=== PATIENT | male | born 1940 | race Caucasian/White ===

== ENCOUNTER 2018-12-26 06:17 | Day surgery (SDC) | payer MEDICARE, BC ==
[~2018-12-26] VITALS: Ht 180.3 cm; Wt 86.5 kg
[2018-12-26] VITALS (16 sets, daily range): BP systolic 90–106; BP diastolic 38–68
[2018-12-26] MEDS ORDERED: sodium chloride 0.45% 1,000 ML IV SCH (06:55)
[2018-12-26] MEDS ORDERED: nitroGLYCERIN 0.4mg SUBLingual tab SL PRN (06:55)
[2018-12-26] MEDS ORDERED: diphenhydrAMINE 25mg capsule PO PRN (06:55)
[2018-12-26] MEDS ORDERED: LORazepam 0.5 MG tablet PO PRN (06:55)
[2018-12-26] MEDS ORDERED: VITAMIN D (07:02)
[2018-12-26] MEDS ORDERED: DIGO250T PO (07:02)
[2018-12-26] MEDS ORDERED: WARF2TAB PO (07:02)
[2018-12-26] MEDS ORDERED: POTA10TA19 PO (07:02)
[2018-12-26] MEDS ORDERED: FURO-149 PO (07:02)
[2018-12-26] MEDS ORDERED: RAMI5CAP65 PO (07:02)
[2018-12-26] MEDS ORDERED: DESL5TAB PO (07:02)
[2018-12-26] MEDS ORDERED: OSC500T PO (07:02)
[2018-12-26] MEDS ORDERED: ROSU20TA2 PO (07:02)
[2018-12-26] MEDS ORDERED: CARV3.12 PO (07:02)
[2018-12-26] MEDS ORDERED: FISH12002 PO (07:02)
[2018-12-26] MEDS ORDERED: MULT-955 PO (07:02)
[2018-12-26 07:52] LABS: PARTIAL THROMBOPLASTIN TIME 34 SECONDS (22-32); PROTHROMBIN TIME 19.8 SECONDS (9.0-12.0)
[2018-12-26] MEDS ORDERED: LIDOcaine 1% (10mg/ml)w/preservative injection 20ml MDV ONE (08:01)
[2018-12-26] MEDS ORDERED: iohexol 350 MG/ML 50ML vial IV ONE (08:01)
[2018-12-26] MEDS ORDERED: iohexol 350MG/ML 100ml bottle IV ONE (08:01)
[2018-12-26] MEDS ORDERED: fentaNYL/PF 50MCG/1 ML 2ML syringe ONE (08:02)
[2018-12-26] MEDS ORDERED: midazolam 2 mg/2 ml injection ONE (08:02)
== END 2018-12-26 16:10 | disposition home or self-care (01) ==
LOC: SSTAY O 06:17
PROVIDERS: ATTEND Internal Medicine Cardiovascular Disease
DX: I25.10 Atherosclerotic heart disease of native coronary artery without angina pectoris (principal); I48.91 Unspecified atrial fibrillation; I50.9 Heart failure, unspecified; E78.5 Hyperlipidemia, unspecified; Z98.890 Other specified postprocedural states; Z87.891 Personal history of nicotine dependence
CPT/HCPCS: 36415; 80162; 85610; 85730; 93005; 93458; 99152; A6257; J1644; J2001; J2250; J3010; Q0163; Q9967; A4620; C1760; C1769

== ENCOUNTER 2019-01-18 07:30 | Inpatient (IN) | payer MEDICARE, BC ==
[2019-01-17 13:05] LABS: ABG HCO3 19.1 mmol/L (22.0-26.0); ABG OXYGEN SATURATION 97.7 % (95-98); ABG PCO2 (T) 24.4 mmHg (35.0-48.0); ABG PH (T) 7.511 (7.350-7.450); ABG PO2 (T) 98.5 mmHg (83-108); ALLEN'S TEST Positive; FCOHb 0.4 % (0.5-1.5); FMetHb 0.1 % (0.3-1.12); FO2Hb 97.2 % (94-100); TOTAL HEMOGLOBIN 14.5 G/dl (14.0-18.0)
[2019-01-17 14:34] LABS: CLARITY,URINE CLOUDY (Clear); COLOR,URINE YELLOW (Yellow); GLUCOSE, URINE NEGATIVE (Neg); KETONES,URINE NEGATIVE (Neg); LEUKOCYTE ESTERASE ,URINE LARGE (Neg); NITRITES, URINE NEGATIVE (Neg); OCCULT BLOOD,URINE SMALL (Neg); PH,URINE 5.5 (4.8-8.0); PROTEIN,URINE NEGATIVE (Neg); UROBILINOGEN,URINE 0.2 E.U/dL (0.2-1.0)
[2019-01-17 14:38] LABS: UA COLLECTION TYPE VOIDED
[2019-01-17 14:39] LABS: BASOPHILS # (AUTO) 0.1 X10'3 (0-0.2); EOSINOPHILS # (AUTO) 0.2 X10'3 (0-0.9); EOSINOPHILS % (AUTO) 3.3 % (0-6); LYMPHOCYTES # (AUTO) 1.2 X10'3 (1.1-4.8); LYMPHOCYTES % (AUTO) 21.9 % (21-51); MEAN CORPUSCULAR HEMOGLOBIN 32.1 PG (27.0-31.0); MEAN CORPUSCULAR HGB CONC 33.8 g/dL (33.0-36.5); MEAN CORPUSCULAR VOLUME 95.1 FL (78-98); MEAN PLATELET VOLUME 8.7 FL (7.4-10.4); MONOCYTES # (AUTO) 0.7 X10'3 (0-0.9); MONOCYTES % (AUTO) 12.8 % (2-12); NEUTROPHILS # (AUTO) 3.3 X10'3 (1.8-7.7); PRE OP HEMATOCRIT 40.7 % (42.0-52.0); PRE OP HEMOGLOBIN 13.8 g/dL (14.0-17.9); PRE OP PLATELET COUNT 239 X10'3 (140-440); RED BLOOD COUNT 4.28 X10'6 (4.70-6.10); RED CELL DISTRIBUTION WIDTH 13.8 % (11.5-14.5)
[2019-01-17 14:41] LABS: WBC,URINE TNTC /HPF (0-4)
[2019-01-17 14:42] LABS: BACTERIA,URINE 1+ /HPF (Neg); MUCUS STRANDS MODERATE /LPF (Neg); SQUAMOUS EPITHELIAL CELL,UR FEW /LPF (FEW)
[2019-01-17 14:43] LABS: HEMOGLOBIN A1C 6.3 % (4.5-6.2)
[2019-01-17 14:51] LABS: ALBUMIN 3.7 G/DL (3.4-5.0); ALBUMIN/GLOBULIN RATIO 0.9 (1.1-1.5); ALKALINE PHOSPHATASE 59 IU/L (46-116); BLOOD UREA NITROGEN 22 MG/DL (7-18); BUN/CREATININE RATIO 18.3 (5.4-32.0); CALCIUM 9.2 MG/DL (8.5-10.1); CHLORIDE 104 MMOL/L (99-107); PRE OP ANION GAP 4 (8-16); PRE OP AST 20 U/L (10-37); PRE OP BILIRUB, TOTAL 0.8 MG/DL (0.0-1.0); PRE OP GLUCOSE 108 MG/DL (70-104); PRE OP POTASSIUM 4.2 MMOL/L (3.4-5.1); PRE OP SODIUM 139 MMOL/L (135-145); TOTAL CARBON DIOXIDE 31.1 MMOL/L (24-32); TOTAL PROTEIN 7.6 G/DL (6.4-8.2); eGFR 59 ML/MIN
[2019-01-17 14:55] LABS: PRE OP INR 1.1 INR; PRE OP PROTIME 11.1 SECONDS (9.0-12.0)
[2019-01-17 15:02] LABS: PRE OP ALT 23 U/L (30-65)
[~2019-01-18] VITALS: Ht 180.3 cm; Wt 86.0 kg
[2019-01-18] VITALS (9 sets, daily range): BP systolic 93–135; BP diastolic 57–95
[~2019-01-18 07:30] MED LIST: CARV3.12 PO; DIGO250T77 PO; DOCUMENT DATE & TIME OF BETA-BLOCKER PO ONE; FURO-149 PO; LORazepam 2 mg/ml vial IV ONE; POTA10TA19 PO; RAMI5CAP65 PO; ROSU20TA2 PO; WARF2.5T PO; cefazolin/dext.iso 2gm/100 ML IV ONE; dextrose 50%-water 50ml dispensing syringe IV PRN; famotidine 20mg tablet PO ONE; gabapentin 300mg capsule PO ONE; iohexol 350MG/ML 100ml bottle IV ONE; metoprolol tartrate 12.5mg (1/2 tablet) PO ONE; mupirocin 2% nasal ointment 1gm UD NS ONE; ringers solution, lacted 1,000 ML IV SCH; vancomycin inj 1,500 MG in normal saline 300ml IV soln IV ONE
[2019-01-18] MEDS ORDERED: ROPIVAcaine 0.5% (5mg/ml) 30ml vial ONE (08:22)
[2019-01-18] MEDS ORDERED: acetaminophen 1,000mg/100ml IV 100 ML IV ONE (08:22)
[2019-01-18] MEDS ORDERED: SUFENTANIL CITRATE 50 MCG/ML 2ml ampule IV ONE (12:38)
[2019-01-18] MEDS ORDERED: midazolam 2 mg/2 ml injection ONE ×2 (12:38→12:59)
[2019-01-18] MEDS ORDERED: propofol inj 20 ML IV ONE (12:38)
[2019-01-18] MEDS ORDERED: rocuronium 10mg/ml inj IV ONE ×3 (12:41)
[2019-01-18] MEDS ORDERED: aminocaproic acid 250 MG/1 ML inj. ONE ×2 (12:51→13:00)
[2019-01-18] MEDS ORDERED: papaverine 30 mg/ml 2ml inj. ONE (12:51)
[2019-01-18] MEDS ORDERED: heparin 10,000 units/1 ML INJ ONE ×2 (12:51→13:00)
[2019-01-18] MEDS ORDERED: sevoflurane 250ml liquid IH ONE (12:51)
[2019-01-18] MEDS ORDERED: DOPamine/D5W 400mg/250ml bag IV ONE (12:51)
[2019-01-18] MEDS ORDERED: protamine sulf. 10mg/ml inj. IV ONE (12:51)
[2019-01-18] MEDS ORDERED: phenylephrine 10mg/ml inj. ONE (13:00)
[2019-01-18] MEDS ORDERED: LIDOcaine 2% (20 mg/ml) 5ml cardiac syringe ONE (13:00)
[2019-01-18] MEDS ORDERED: potassium Cl 2 mEq/ml inj IV ONE (13:00)
[2019-01-18] MEDS ORDERED: heparin 1,000 units/ml 10ml inj ONE (13:00)
[2019-01-18] MEDS ORDERED: calcium chloride 100 MG/1 ML inj IV ONE (13:00)
[2019-01-18] MEDS ORDERED: sodium bicarbonate (8.4%) inj. 1 MEQ/ML ML ONE (13:00)
[2019-01-18] MEDS ORDERED: MAGNESIUM SULFATE 4 MEQ/ML (5gm/10ml) injection ONE (13:00)
[2019-01-18] MEDS ORDERED: albumin (human) 25% 100 ML IV solution IV ONE (13:00)
[2019-01-18] MEDS: insulin regular, human 100 UNIT in normal saline 100ml IV soln 99 ML IV SCH ×2 (13:30)
[2019-01-18 14:01] LABS: ABG BASE EXCESS -0.4 mmol/L (-2.0-3.0); ABG HCO3 23.3 mmol/L (22.0-26.0); ABG OXYGEN SATURATION 99.4 % (95-98); ABG PCO2 35.2 mmHg (35.0-45.0); ABG PH 7.438 (7.350-7.450); ABG PO2 255.1 mmHg (60.0-100.0); CL (ABG) 106 mmol/L (99-107); FCOHb 0.6 % (0.5-1.5); FMetHb 0.4 % (0.3-1.12); FO2Hb 98.4 % (94-100); GLUCOSE (ABG) 146 mg/dl (70-105); IONIZED CA (ABG) 1.14 mmol/L (1.03-1.32); K (ABG) 3.9 mmol/L (3.3-5.1); NA (ABG) 137 mmol/L (135-145); TOTAL HEMOGLOBIN 13.2 G/dl (14.0-18.0)
[2019-01-18] MEDS ORDERED: heparin 1,000unit/ml 10ml vial 10 ML ONE (14:15)
[2019-01-18] MEDS ORDERED: heparin 10,000 units/1 ML INJ IR ONE (14:37)
[2019-01-18] MEDS ORDERED: papaverine 30 mg/ml 2ml inj. IA ONE (14:38)
[2019-01-18 15:20] LABS: ABG BASE EXCESS 0.9 mmol/L (-2.0-3.0); ABG HCO3 24.8 mmol/L (22.0-26.0); ABG OXYGEN SATURATION 99.5 % (95-98); ABG PCO2 36.7 mmHg (35.0-45.0); ABG PH 7.447 (7.350-7.450); ABG PO2 583.6 mmHg (60.0-100.0); CL (ABG) 105 mmol/L (99-107); FMetHb 0.4 % (0.3-1.12); FO2Hb 99.1 % (94-100); GLUCOSE (ABG) 128 mg/dl (70-105); IONIZED CA (ABG) 1.02 mmol/L (1.03-1.32); K (ABG) 5.2 mmol/L (3.3-5.1); NA (ABG) 135 mmol/L (135-145); TOTAL HEMOGLOBIN 10.9 G/dl (14.0-18.0)
[2019-01-18 15:41] LABS: ABG BASE EXCESS VENOUS 0.3 mmol/L; ABG HCO3 VENOUS 24.7 mmol/L; ABG PCO2 VENOUS 38.8 mmHg; ABG PO2 VENOUS 69.6 mmHg; CL (ABG) 106 mmol/L (99-107); FCOHb VENOUS 0.3 %; FMetHb VENOUS 0.3 %; FO2Hb VENOUS 93.4 %; GLUCOSE (ABG) 129 mg/dl (70-105); IONIZED CA (ABG) 1.05 mmol/L (1.03-1.32); K (ABG) 5.2 mmol/L (3.3-5.1); NA (ABG) 135 mmol/L (135-145); TOTAL HEMOGLOBIN 10.9 G/dl (14.0-18.0)
[2019-01-18 16:01] LABS: ABG BASE EXCESS 1.6 mmol/L (-2.0-3.0); ABG HCO3 24.7 mmol/L (22.0-26.0); ABG OXYGEN SATURATION 98.9 % (95-98); ABG PCO2 33.5 mmHg (35.0-45.0); ABG PH 7.486 (7.350-7.450); ABG PO2 330.6 mmHg (60.0-100.0); CL (ABG) 110 mmol/L (99-107); FCOHb 0.3 % (0.5-1.5); FMetHb 0.4 % (0.3-1.12); FO2Hb 98.2 % (94-100); GLUCOSE (ABG) 118 mg/dl (70-105); IONIZED CA (ABG) > 2.84 mmol/L (1.03-1.32); K (ABG) 4.6 mmol/L (3.3-5.1); NA (ABG) 130 mmol/L (135-145); TOTAL HEMOGLOBIN 9.9 G/dl (14.0-18.0)
[2019-01-18 16:01] LABS: ABG BASE EXCESS 0.4 mmol/L (-2.0-3.0); ABG HCO3 22.6 mmol/L (22.0-26.0); ABG PH 7.525 (7.350-7.450); ABG PO2 320.3 mmHg (60.0-100.0); CL (ABG) 104 mmol/L (99-107); FCOHb 0.3 % (0.5-1.5); FMetHb 0.3 % (0.3-1.12); FO2Hb 98.4 % (94-100); GLUCOSE (ABG) 113 mg/dl (70-105); IONIZED CA (ABG) 1.42 mmol/L (1.03-1.32); K (ABG) 4.6 mmol/L (3.3-5.1); NA (ABG) 131 mmol/L (135-145); TOTAL HEMOGLOBIN 9.7 G/dl (14.0-18.0)
[2019-01-18 16:20] LABS: ABG BASE EXCESS VENOUS 1.1 mmol/L; ABG HCO3 VENOUS 25.5 mmol/L; ABG PO2 VENOUS 38.1 mmHg; CL (ABG) 105 mmol/L (99-107); FCOHb VENOUS 0.7 %; FHHb VENOUS 26.1 %; FMetHb VENOUS 0.4 %; FO2Hb VENOUS 72.8 %; GLUCOSE (ABG) 121 mg/dl (70-105); IONIZED CA (ABG) 1.25 mmol/L (1.03-1.32); K (ABG) 4.4 mmol/L (3.3-5.1); NA (ABG) 136 mmol/L (135-145); TOTAL HEMOGLOBIN 10.7 G/dl (14.0-18.0)
[2019-01-18] MEDS ORDERED: niCARDipine-NS 40mg/200ml IVPB 200 ML IV PRN (16:51)
[2019-01-18] MEDS ORDERED: DOPamine 400mg/D5W 250ml 250 ML IV PRN (16:51)
[2019-01-18] MEDS ORDERED: nitroGLYCERIN-Tridil 50MG/D5W 250 ML IV PRN (16:51)
[2019-01-18] MEDS ORDERED: pantoprazole 40 MG vial IV ONE (16:55)
[2019-01-18] MEDS ORDERED: ondansetron/PF 4mg/2ml inj IV PRN (16:55)
[2019-01-18] MEDS ORDERED: sodium phosphate inj. 30 MMOL in dextrose 5%-water 250 ML IV PRN (16:55)
[2019-01-18] MEDS ORDERED: Neutra Phos packet PO PRN (16:55)
[2019-01-18] MEDS ORDERED: dextrose 50%-water 50ml dispensing syringe IV PRN (16:55)
[2019-01-18] MEDS ORDERED: insulin regular, human inj. 100 UNITS in normal saline 100ml IV soln 100 ML IV SCH ×2 (16:55)
[2019-01-18] MEDS ORDERED: magnesium 2GM in 50ml NS 50 ML IV PRN (16:55)
[2019-01-18] MEDS ORDERED: sodium phosphate inj. 15 MMOL in dextrose 5%-water 150 ML IV PRN (16:55)
[2019-01-18] MEDS ORDERED: morphine 4 MG/ML inj SYRINge IV PRN ×2 (16:55)
[2019-01-18] MEDS ORDERED: magnesium hydroxide 30ml (MOM) UD suspension PO PRN (16:55)
[2019-01-18] MEDS ORDERED: potassium Cl 20 mEq SR tablet PO PRN (16:55)
[2019-01-18] MEDS ORDERED: metoclopramide 5 mg/ml inj IV PRN (16:55)
[2019-01-18] MEDS ORDERED: HYDROcodone/acetaminophen 10/325mg tab PO PRN (16:55)
[2019-01-18] MEDS ORDERED: normal saline 250ml IV soln 250 ML IV PRN (16:55)
[2019-01-18] MEDS ORDERED: magnesium 4gm in 100ml NS 100 ML IV PRN (16:55)
--- NOTE | 2019-01-18 17:00 | NUR ---
Received to room 2040, accompanied by MDs and surgical crew. Placed on ventilator, to wood box maker, arterial line and PA line pressure monitored. Chest tubes to suction at 20 cm. Rankin cath to gravity drainage. Dressings are dry and intact. See assessment record. All vasoactive drugs are infusing via central line.
[2019-01-18 17:21] LABS: ABG BASE EXCESS -1.1 mmol/L (-2.0-3.0); ABG HCO3 22.8 mmol/L (22.0-26.0); ABG OXYGEN SATURATION 99.1 % (95-98); ABG PCO2 (T) 34.2 mmHg (35.0-48.0); ABG PH (T) 7.437 (7.350-7.450); FCOHb 0.3 % (0.5-1.5); FMetHb 0.4 % (0.3-1.12); FO2Hb 98.4 % (94-100); MINUTE VOLUME 7 L/min; PATIENT TEMPERATURE 36.1; PEEP 5 cm H2O; RESPIRATORY RATE 12 b/min; TIDAL VOLUME 500 mL
[2019-01-18 17:30] LABS: BASOPHILS % (AUTO) 0.2 % (0-1); EOSINOPHILS # (AUTO) 0.2 X10'3 (0-0.9); EOSINOPHILS % (AUTO) 1.2 % (0-6); HEMATOCRIT 36.2 % (42.0-52.0); HEMOGLOBIN 12.3 g/dl (14.0-17.9); LYMPHOCYTES # (AUTO) 0.6 X10'3 (1.1-4.8); MEAN CORPUSCULAR HEMOGLOBIN 32.3 PG (27.0-31.0); MEAN CORPUSCULAR VOLUME 94.9 FL (78-98); MEAN PLATELET VOLUME 8.4 FL (7.4-10.4); MONOCYTES # (AUTO) 0.9 X10'3 (0-0.9); MONOCYTES % (AUTO) 6.8 % (2-12); NEUTROPHILS # (AUTO) 11.3 X10'3 (1.8-7.7); NEUTROPHILS % (AUTO) 86.8 % (42-75); PLATELET COUNT 149 X10'3 (140-440); RED BLOOD COUNT 3.81 X10'6 (4.70-6.10); RED CELL DISTRIBUTION WIDTH 13.7 % (11.5-14.5)
[2019-01-18] MEDS: sodium chloride 0.45% 1,000 ML IV SCH (17:30)
[2019-01-18 17:42] LABS: ALANINE AMINOTRANSFERASE 21 U/L (12-78); ALBUMIN 2.8 G/DL (3.4-5.0); ALBUMIN/GLOBULIN RATIO 1.2 (1.1-1.5); ALKALINE PHOSPHATASE 35 IU/L (46-116); ANION GAP 8 (8-16); ASPARTATE AMINO TRANSFERASE 25 U/L (10-37); BILIRUBIN,TOTAL 0.9 MG/DL (0.1-1.0); BLOOD UREA NITROGEN 16 MG/DL (7-18); BUN/CREATININE RATIO 15.1 (5.4-32.0); CALCIUM 8.5 MG/DL (8.5-10.1); CHLORIDE 109 MMOL/L (99-107); CREATININE 1.06 MG/DL (0.60-1.10); GLUCOSE 150 MG/DL (70-104); MAGNESIUM 3.5 MG/DL (1.5-2.4); PHOSPHORUS 1.4 MG/DL (2.3-4.5); POTASSIUM 3.9 MMOL/L (3.5-5.1); SODIUM 142 MMOL/L (135-145); TOTAL CARBON DIOXIDE 24.6 MMOL/L (24-32); TOTAL PROTEIN 5.2 G/DL (6.4-8.2); eGFR 68 ML/MIN
[2019-01-18 17:48] LABS: INR 1.3 INR; PARTIAL THROMBOPLASTIN TIME 24 SECONDS (22-32)
[2019-01-18] MEDS: insulin Lispro (HumaLOG) vial - multi-dose SQ SCH (17:58)
[2019-01-18] MEDS: potassium Cl 20mEq/100mL bag 100 ML IV PRN ×3 (19:05→23:59)
[2019-01-18] MEDS: albumin (Human) 5% 250ml 250 ML IV PRN ×2 (19:41→21:57)
[2019-01-18] MEDS: docusate sod 100mg capsule PO SCH (20:00)
[2019-01-18] MEDS: vancomycin/NS 1 GM ADD-VANTAGE 250 ML IV SCH (20:35)
[2019-01-18] MEDS: mupirocin 2% nasal ointment 1gm UD NS SCH (20:35)
[2019-01-18] MEDS: gabapentin 300mg capsule PO SCH (20:36)
--- NOTE | 2019-01-18 22:00 | NUR ---
Updated Dr Rain via telephone. No new orders at this time. Pt moves all extremities to command, remains sleepy, denies pain.
[2019-01-18 23:19] LABS: BASOPHILS % (AUTO) 0.1 % (0-1); EOSINOPHILS % (AUTO) 0.1 % (0-6); HEMATOCRIT 33.9 % (42.0-52.0); HEMOGLOBIN 11.3 g/dl (14.0-17.9); LYMPHOCYTES # (AUTO) 0.4 X10'3 (1.1-4.8); LYMPHOCYTES % (AUTO) 3.7 % (21-51); MEAN CORPUSCULAR HGB CONC 33.4 g/dL (33.0-36.5); MEAN CORPUSCULAR VOLUME 96.1 FL (78-98); MEAN PLATELET VOLUME 8.7 FL (7.4-10.4); MONOCYTES # (AUTO) 0.4 X10'3 (0-0.9); MONOCYTES % (AUTO) 3.3 % (2-12); NEUTROPHILS # (AUTO) 10.6 X10'3 (1.8-7.7); NEUTROPHILS % (AUTO) 92.8 % (42-75); PLATELET COUNT 154 X10'3 (140-440); RED BLOOD COUNT 3.53 X10'6 (4.70-6.10); RED CELL DISTRIBUTION WIDTH 13.4 % (11.5-14.5); WHITE BLOOD COUNT 11.4 X10'3 (4.5-11.0)
[2019-01-18 23:39] LABS: ALBUMIN 3.5 G/DL (3.4-5.0); ANION GAP 9 (8-16); BLOOD UREA NITROGEN 17 MG/DL (7-18); BUN/CREATININE RATIO 16.5 (5.4-32.0); CALCIUM 8.3 MG/DL (8.5-10.1); CHLORIDE 111 MMOL/L (99-107); CREATININE 1.03 MG/DL (0.60-1.10); GLUCOSE 176 MG/DL (70-104); MAGNESIUM 2.7 MG/DL (1.5-2.4); PHOSPHORUS 3.1 MG/DL (2.3-4.5); POTASSIUM 3.9 MMOL/L (3.5-5.1); SODIUM 143 MMOL/L (135-145); TOTAL CARBON DIOXIDE 22.8 MMOL/L (24-32); eGFR 70 ML/MIN
[2019-01-18] MEDS: ceFAZolin 1GM/D5W- ADD-VANTAGE 50 ML IV SCH (23:59)
[2019-01-19] VITALS (24 sets, daily range): BP systolic 89–114; BP diastolic 47–67
--- NOTE | 2019-01-19 00:30 | NUR ---
Spontaneous breathing trial attempted, pt still too sleepy and triggers back up rate of vent.
[2019-01-19] MEDS: potassium Cl 20mEq/100mL bag 100 ML IV PRN ×3 (01:28→06:16)
[2019-01-19 03:00] LABS: ABG BASE EXCESS -2.3 mmol/L (-2.0-3.0); ABG HCO3 20.4 mmol/L (22.0-26.0); ABG OXYGEN SATURATION 97.6 % (95-98); ABG PCO2 (T) 29.4 mmHg (35.0-48.0); ABG PO2 (T) 109.9 mmHg (83-108); FCOHb 0.2 % (0.5-1.5); FMetHb 0.2 % (0.3-1.12); FO2Hb 97.2 % (94-100); MINUTE VOLUME 7 L/min; PATIENT TEMPERATURE 37.4; PEEP 5 cm H2O; RESPIRATORY RATE (OBSERVED) 14 b/min; TOTAL HEMOGLOBIN 11.9 G/dl (14.0-18.0)
[2019-01-19] MEDS: albumin (Human) 5% 250ml 250 ML IV PRN (03:21)
[2019-01-19 03:52] LABS: BASOPHILS % (AUTO) 0.1 % (0-1); EOSINOPHILS % (AUTO) 0 % (0-6); HEMATOCRIT 32.5 % (42.0-52.0); LYMPHOCYTES # (AUTO) 0.5 X10'3 (1.1-4.8); LYMPHOCYTES % (AUTO) 5.2 % (21-51); MEAN CORPUSCULAR HEMOGLOBIN 32.4 PG (27.0-31.0); MEAN CORPUSCULAR HGB CONC 33.7 g/dL (33.0-36.5); MEAN CORPUSCULAR VOLUME 96.1 FL (78-98); MEAN PLATELET VOLUME 8.6 FL (7.4-10.4); MONOCYTES # (AUTO) 0.3 X10'3 (0-0.9); MONOCYTES % (AUTO) 3.6 % (2-12); NEUTROPHILS % (AUTO) 91.1 % (42-75); PLATELET COUNT 150 X10'3 (140-440); RED BLOOD COUNT 3.39 X10'6 (4.70-6.10); RED CELL DISTRIBUTION WIDTH 13.8 % (11.5-14.5); WHITE BLOOD COUNT 8.8 X10'3 (4.5-11.0)
[2019-01-19 04:01] LABS: ALANINE AMINOTRANSFERASE 17 U/L (12-78); ALBUMIN 3.4 G/DL (3.4-5.0); ALBUMIN/GLOBULIN RATIO 1.4 (1.1-1.5); ALKALINE PHOSPHATASE 37 IU/L (46-116); ANION GAP 7 (8-16); ASPARTATE AMINO TRANSFERASE 31 U/L (10-37); BILIRUBIN,TOTAL 0.7 MG/DL (0.1-1.0); BLOOD UREA NITROGEN 16 MG/DL (7-18); BUN/CREATININE RATIO 14.7 (5.4-32.0); CALCIUM 8.4 MG/DL (8.5-10.1); CHLORIDE 112 MMOL/L (99-107); CREATININE 1.09 MG/DL (0.60-1.10); GLUCOSE 157 MG/DL (70-104); MAGNESIUM 2.6 MG/DL (1.5-2.4); PHOSPHORUS 3.6 MG/DL (2.3-4.5); SODIUM 143 MMOL/L (135-145); TOTAL CARBON DIOXIDE 24.4 MMOL/L (24-32); TOTAL PROTEIN 5.9 G/DL (6.4-8.2); eGFR 65 ML/MIN
--- NOTE | 2019-01-19 04:03 | NUR ---
Pt extubated at 0315 to 4L NC, doing well, denies pain.
[2019-01-19 04:05] LABS: INR 1.2 INR
[2019-01-19 04:06] LABS: PARTIAL THROMBOPLASTIN TIME 24 SECONDS (22-32)
[2019-01-19] MEDS: insulin regular, human 100 UNIT in normal saline 100ml IV soln 99 ML IV SCH ×2 (06:00)
--- NOTE | 2019-01-19 06:32 | NUR ---
Problems reprioritized. Patient report given, questions answered & plan of care reviewed with Ashtyn JI.
[2019-01-19] MEDS ORDERED: aspirin 325mg tablet, delayed-release (Ecotrin) PO SCH ×2 (08:00)
[2019-01-19] MEDS: mupirocin 2% nasal ointment 1gm UD NS SCH ×2 (08:00→20:12)
[2019-01-19] MEDS: atorvastatin 20mg tablet PO SCH (08:55)
[2019-01-19] MEDS: carVEDilol 3.125mg tablet PO SCH ×2 (08:55→20:15)
[2019-01-19] MEDS: ceFAZolin 1GM/D5W- ADD-VANTAGE 50 ML IV SCH ×2 (08:56→16:41)
[2019-01-19] MEDS: HYDROcodone/acetaminophen 10/325mg tab PO PRN ×2 (08:56→13:45)
[2019-01-19] MEDS: docusate sod 100mg capsule PO SCH ×2 (08:56→20:15)
[2019-01-19] MEDS: gabapentin 300mg capsule PO SCH ×3 (08:56→20:14)
[2019-01-19] MEDS: vancomycin/NS 1 GM ADD-VANTAGE 250 ML IV SCH ×2 (08:56→20:20)
[2019-01-19] MEDS: insulin Lispro (HumaLOG) vial - multi-dose SQ SCH ×4 (09:00→20:31)
--- NOTE | 2019-01-19 10:15 | NUR ---
Nutrition consult: Pt s/p CABG x 2 just extubated this morning per MD notes. Will provide nutrition education prior to d/c once pt more alert and oriented. Addendum: 01/19/19 at [address] Amended: Links added.
--- NOTE | 2019-01-19 10:58 | NUR ---
PT at the bedside getting the patient up to the chair
--- NOTE | 2019-01-19 12:43 | NUR ---
Patient making progress today, PA line out per MD order, ART line removed, insulin drip is off and he has started eating. patient worked with PT although he was pretty wobbly and not steady enough to walk quite yet. Pain is in good control with norco. Patient is in positive spirits and able to make all needs known
[2019-01-19] MEDS ORDERED: dextrose ORAL solution 15 GM/59 ML bottle PO PRN ×2 (13:20)
[2019-01-19] MEDS ORDERED: MESSAGE TO PHARMACY PO ONE (13:20)
[2019-01-19] MEDS ORDERED: glucagon, human recombinant 1mg kit SUBCUT PRN (13:20)
[2019-01-19] MEDS ORDERED: dextrose 50%-water 50ml dispensing syringe IV PRN ×2 (13:20)
--- NOTE | 2019-01-19 18:38 | NUR ---
Problems reprioritized. Patient report given, questions answered & plan of care reviewed with Arnie Orellana.
[2019-01-19] MEDS ORDERED: digoxin 250mcg (0.25mg) tablet PO ONE (19:55)
[2019-01-19] MEDS: insulin glargine (Lantus) pen - multi-dose SQ SCH (20:32)
[2019-01-20] VITALS (24 sets, daily range): BP systolic 93–121; BP diastolic 51–77
[2019-01-20] MEDS: ceFAZolin 1GM/D5W- ADD-VANTAGE 50 ML IV SCH ×2 (00:14→08:15)
[2019-01-20 03:07] LABS: ALBUMIN 3.2 G/DL (3.4-5.0); ANION GAP 6 (8-16); BLOOD UREA NITROGEN 19 MG/DL (7-18); BUN/CREATININE RATIO 17.6 (5.4-32.0); CALCIUM 8.6 MG/DL (8.5-10.1); CHLORIDE 106 MMOL/L (99-107); CREATININE 1.08 MG/DL (0.60-1.10); GLUCOSE 228 MG/DL (70-104); MAGNESIUM 2.4 MG/DL (1.5-2.4); PHOSPHORUS 2.5 MG/DL (2.3-4.5); POTASSIUM 4.7 MMOL/L (3.5-5.1); SODIUM 139 MMOL/L (135-145); TOTAL CARBON DIOXIDE 27.2 MMOL/L (24-32); eGFR 66 ML/MIN
[2019-01-20 03:08] LABS: BASOPHILS % (AUTO) 0.1 % (0-1); EOSINOPHILS % (AUTO) 0 % (0-6); HEMATOCRIT 30.6 % (42.0-52.0); HEMOGLOBIN 10.1 g/dl (14.0-17.9); LYMPHOCYTES # (AUTO) 0.5 X10'3 (1.1-4.8); LYMPHOCYTES % (AUTO) 3.6 % (21-51); MEAN CORPUSCULAR HEMOGLOBIN 32.1 PG (27.0-31.0); MEAN CORPUSCULAR HGB CONC 33.1 g/dL (33.0-36.5); MEAN CORPUSCULAR VOLUME 97.1 FL (78-98); MEAN PLATELET VOLUME 9.3 FL (7.4-10.4); MONOCYTES # (AUTO) 1.3 X10'3 (0-0.9); MONOCYTES % (AUTO) 9.3 % (2-12); NEUTROPHILS # (AUTO) 12.1 X10'3 (1.8-7.7); PLATELET COUNT 128 X10'3 (140-440); RED BLOOD COUNT 3.15 X10'6 (4.70-6.10); RED CELL DISTRIBUTION WIDTH 14.2 % (11.5-14.5); WHITE BLOOD COUNT 13.9 X10'3 (4.5-11.0)
[2019-01-20] MEDS: insulin regular, human 100 UNIT in normal saline 100ml IV soln 99 ML IV SCH ×2 (06:00)
--- NOTE | 2019-01-20 06:49 | NUR ---
Patient in room ICU 2040. I have received report from GARRISON Gaitan and had the opportunity to ask questions and assume patient care.
[2019-01-20] MEDS: carVEDilol 3.125mg tablet PO SCH ×2 (08:13→18:02)
[2019-01-20] MEDS: pantoprazole 40mg Tablet.DR PO SCH (08:13)
[2019-01-20] MEDS: gabapentin 300mg capsule PO SCH ×2 (08:13→14:02)
[2019-01-20] MEDS: atorvastatin 20mg tablet PO SCH (08:14)
[2019-01-20] MEDS: digoxin 250mcg (0.25mg) tablet PO SCH (08:14)
[2019-01-20] MEDS: docusate sod 100mg capsule PO SCH ×2 (08:14→20:29)
[2019-01-20] MEDS: HYDROcodone/acetaminophen 10/325mg tab PO PRN (08:14)
[2019-01-20] MEDS: mupirocin 2% nasal ointment 1gm UD NS SCH (08:22)
[2019-01-20] MEDS: insulin Lispro (HumaLOG) vial - multi-dose SQ SCH ×3 (09:00→14:05)
--- NOTE | 2019-01-20 10:00 | NUR ---
Central line and castro catheter discontinued.
[2019-01-20] MEDS: aspirin 81mg tablet.DR PO SCH (10:09)
[2019-01-20] MEDS: sodium chloride 0.45% 1,000 ML IV SCH (16:51)
--- NOTE | 2019-01-20 17:45 | NUR ---
Pt's HR continues to trend upward.. When transferring pt to chair HR increased to 180's. Pt reported "feeling dizzy". Dr. Rain called. Received order to administer coreg dose early.
--- NOTE | 2019-01-20 18:27 | NUR ---
Problems reprioritized. Patient report given, questions answered & plan of care reviewed with GARRISON Hager.
[2019-01-20] MEDS: insulin glargine (Lantus) pen - multi-dose SQ SCH (20:42)
[2019-01-20] MEDS ORDERED: warfarin 5mg tablet PO ONE (21:00)
[2019-01-21] VITALS (23 sets, daily range): BP systolic 89–122; BP diastolic 43–82
[2019-01-21 05:11] LABS: ACTIVATED CLOTTING TIME 103 SEC (101-148)
[2019-01-21 05:11] LABS: ACT @ 1.70 U 257 SEC (193-297); ACT @ 2.84 U 353 SEC (260-420); BASELINE ACT 123 SEC (101-148); PATIENT WEIGHT 84.0k KG
[2019-01-21] MEDS: insulin regular, human 100 UNIT in normal saline 100ml IV soln 99 ML IV SCH ×2 (06:00)
[2019-01-21 06:07] LABS: BASOPHILS % (AUTO) 0.1 % (0-1); EOSINOPHILS % (AUTO) 0.1 % (0-6); HEMATOCRIT 32.4 % (42.0-52.0); LYMPHOCYTES # (AUTO) 0.9 X10'3 (1.1-4.8); LYMPHOCYTES % (AUTO) 7.6 % (21-51); MEAN CORPUSCULAR HEMOGLOBIN 32.9 PG (27.0-31.0); MEAN CORPUSCULAR HGB CONC 33.9 g/dL (33.0-36.5); MEAN CORPUSCULAR VOLUME 96.9 FL (78-98); MEAN PLATELET VOLUME 9.7 FL (7.4-10.4); MONOCYTES # (AUTO) 1.6 X10'3 (0-0.9); NEUTROPHILS # (AUTO) 9.8 X10'3 (1.8-7.7); NEUTROPHILS % (AUTO) 79.2 % (42-75); PLATELET COUNT 123 X10'3 (140-440); RED BLOOD COUNT 3.34 X10'6 (4.70-6.10); RED CELL DISTRIBUTION WIDTH 13.8 % (11.5-14.5); WHITE BLOOD COUNT 12.4 X10'3 (4.5-11.0)
[2019-01-21 06:26] LABS: INR 1.1 INR
[2019-01-21 06:34] LABS: ANION GAP 7 (8-16); BLOOD UREA NITROGEN 19 MG/DL (7-18); CALCIUM 8.7 MG/DL (8.5-10.1); CHLORIDE 103 MMOL/L (99-107); CREATININE 0.95 MG/DL (0.60-1.10); GLUCOSE 131 MG/DL (70-104); MAGNESIUM 2.2 MG/DL (1.5-2.4); PHOSPHORUS 2.3 MG/DL (2.3-4.5); SODIUM 140 MMOL/L (135-145); TOTAL CARBON DIOXIDE 29.7 MMOL/L (24-32); eGFR 77 ML/MIN
[2019-01-21] MEDS: carVEDilol 3.125mg tablet PO SCH ×2 (07:10→19:55)
[2019-01-21] MEDS: pantoprazole 40mg Tablet.DR PO SCH (07:11)
[2019-01-21] MEDS: digoxin 250mcg (0.25mg) tablet PO SCH (07:11)
[2019-01-21] MEDS: atorvastatin 20mg tablet PO SCH (07:11)
[2019-01-21] MEDS: aspirin 81mg tablet.DR PO SCH (07:11)
[2019-01-21] MEDS: docusate sod 100mg capsule PO SCH ×2 (07:12→19:55)
[2019-01-21] MEDS: insulin Lispro (HumaLOG) vial - multi-dose SQ SCH ×4 (09:00→19:53)
[2019-01-21] MEDS: HYDROcodone/acetaminophen 10/325mg tab PO PRN (09:14)
[2019-01-21] MEDS ORDERED: potassium Cl 20 mEq SR tablet PO PRN ×2 (09:30)
[2019-01-21] MEDS ORDERED: magnesium 4gm in 100ml NS 100 ML IV PRN (09:30)
[2019-01-21] MEDS ORDERED: magnesium 2GM in 50ml NS 50 ML IV PRN (09:30)
[2019-01-21] MEDS ORDERED: magnesium Cl slow-release 64mg tablet PO PRN (09:30)
[2019-01-21] MEDS ORDERED: potassium Cl 40MEQ/NS 500ml 500 ML IV PRN ×2 (09:30)
[2019-01-21] MEDS: magnesium Cl slow-release 64mg tablet PO SCH (19:36)
[2019-01-21] MEDS: potassium Cl 20 mEq SR tablet PO SCH (19:56)
[2019-01-21] MEDS ORDERED: warfarin 5mg tablet PO ONE (21:00)
[2019-01-21] MEDS: insulin glargine (Lantus) pen - multi-dose SQ SCH (22:07)
[2019-01-22] VITALS (18 sets, daily range): BP systolic 86–117; BP diastolic 45–67
[2019-01-22 05:06] LABS: BASOPHILS % (AUTO) 0.3 % (0-1); EOSINOPHILS # (AUTO) 0.1 X10'3 (0-0.9); EOSINOPHILS % (AUTO) 1.6 % (0-6); HEMATOCRIT 31.1 % (42.0-52.0); HEMOGLOBIN 10.7 g/dl (14.0-17.9); LYMPHOCYTES % (AUTO) 11.2 % (21-51); MEAN CORPUSCULAR HEMOGLOBIN 33.1 PG (27.0-31.0); MEAN CORPUSCULAR HGB CONC 34.3 g/dL (33.0-36.5); MEAN CORPUSCULAR VOLUME 96.2 FL (78-98); MONOCYTES # (AUTO) 1.2 X10'3 (0-0.9); MONOCYTES % (AUTO) 12.9 % (2-12); NEUTROPHILS # (AUTO) 6.6 X10'3 (1.8-7.7); PLATELET COUNT 145 X10'3 (140-440); RED BLOOD COUNT 3.24 X10'6 (4.70-6.10); RED CELL DISTRIBUTION WIDTH 13.4 % (11.5-14.5)
[2019-01-22 05:11] LABS: ALBUMIN 2.8 G/DL (3.4-5.0); ANION GAP 3 (8-16); BLOOD UREA NITROGEN 20 MG/DL (7-18); BUN/CREATININE RATIO 18.9 (5.4-32.0); CALCIUM 8.4 MG/DL (8.5-10.1); CHLORIDE 104 MMOL/L (99-107); CREATININE 1.06 MG/DL (0.60-1.10); GLUCOSE 124 MG/DL (70-104); MAGNESIUM 2.1 MG/DL (1.5-2.4); SODIUM 136 MMOL/L (135-145); TOTAL CARBON DIOXIDE 29.5 MMOL/L (24-32); eGFR 68 ML/MIN
[2019-01-22 05:12] LABS: POTASSIUM 4.3 MMOL/L (3.5-5.1)
--- NOTE | 2019-01-22 06:18 | NUR ---
Pt report given to oncriaz RN
--- NOTE | 2019-01-22 06:30 | NUR ---
Patient in room ICU 2040. I have received report and had the opportunity to ask questions and assume patient care.
[2019-01-22] MEDS: pantoprazole 40mg Tablet.DR PO SCH (07:32)
[2019-01-22] MEDS: carVEDilol 3.125mg tablet PO SCH ×2 (07:32→20:03)
[2019-01-22] MEDS: docusate sod 100mg capsule PO SCH ×2 (07:32→20:03)
[2019-01-22] MEDS: aspirin 81mg tablet.DR PO SCH (07:33)
[2019-01-22] MEDS: digoxin 250mcg (0.25mg) tablet PO SCH (07:34)
[2019-01-22] MEDS: atorvastatin 20mg tablet PO SCH (07:34)
[2019-01-22] MEDS: acetaminophen 325mg tablet PO PRN (07:35)
[2019-01-22] MEDS: K and/or MAG REPLACEMENT MC SCH (08:00)
[2019-01-22] MEDS ORDERED: amiodarone 200mg tablet PO ONE (08:40)
[2019-01-22] MEDS ORDERED: magnesium citrate 296ml oral solution PO ONE (08:40)
[2019-01-22 09:33] LABS: INR 1.4 INR
[2019-01-22] MEDS: potassium Cl 20 mEq SR tablet PO SCH ×2 (10:20→19:35)
[2019-01-22] MEDS: magnesium Cl slow-release 64mg tablet PO SCH ×2 (10:21→19:35)
[2019-01-22] MEDS: insulin Lispro (HumaLOG) vial - multi-dose SQ SCH ×3 (10:25→18:35)
--- NOTE | 2019-01-22 11:53 | NUR ---
Report called to GARRISON Rouse on [facility] unit.
--- NOTE | 2019-01-22 12:20 | NUR ---
Pt transferred to [facility]E unit, rm 310 via wheelchair. Met receiving RN at bedside.
--- NOTE | 2019-01-22 12:20 | NUR ---
Received patient via wheelchair from ICU 2040 after receiving report from Rick JI. Pt minimal assist from wheelchair to high back chair for lunch. Denies pain at this time. VSS. Will continue to monitor closely.
--- NOTE | 2019-01-22 13:12 | NUR ---
Agree with morning physical assessment documented by Rick JI.
[2019-01-22] MEDS ORDERED: furosemide 40mg/4ml inj IV ONE (15:40)
[2019-01-22] MEDS ORDERED: furosemide 40mg/4ml inj ONE (15:44)
--- NOTE | 2019-01-22 15:54 | NUR ---
Acknowleged new order for IV Lasix. Pt bp 97/53 (66). Called and spoke with Enzo GARCIA. He explained that the one time dose of IV lasix is ordered in response to the Echocardiogram results from today. Enzo states okay to give. Will monitor bp closely.
--- NOTE | 2019-01-22 18:30 | NUR ---
Patient in room MED 310. I have received report from Rosa RN and had the opportunity to ask questions and assume patient care. at bedside, pt sitting in chair eating dinner. no c/o pain/distress at this time. will continue to monitor.
--- NOTE | 2019-01-22 18:30 | NUR ---
Problems reprioritized. Patient report given, questions answered & plan of care reviewed with Kya JI.
[2019-01-22] MEDS: amiodarone 200mg tablet PO SCH (20:02)
[2019-01-22] MEDS ORDERED: warfarin 3mg tablet PO ONE (21:00)
[2019-01-22] MEDS: insulin glargine (Lantus) pen - multi-dose SQ SCH (21:32)
[2019-01-23] VITALS (7 sets, daily range): BP systolic 86–106; BP diastolic 50–61
--- NOTE | 2019-01-23 06:26 | NUR ---
Problems reprioritized. Patient report given, questions answered & plan of care reviewed with Carol JI.
--- NOTE | 2019-01-23 06:37 | NUR ---
Patient in room MED 310. I have received report from Kya JI and had the opportunity to ask questions and assume patient care.
[2019-01-23 06:52] LABS: BASOPHILS % (AUTO) 0.3 % (0-1); EOSINOPHILS # (AUTO) 0.2 X10'3 (0-0.9); EOSINOPHILS % (AUTO) 3.4 % (0-6); HEMATOCRIT 30.6 % (42.0-52.0); HEMOGLOBIN 10.5 g/dl (14.0-17.9); LYMPHOCYTES # (AUTO) 0.9 X10'3 (1.1-4.8); LYMPHOCYTES % (AUTO) 12.9 % (21-51); MEAN CORPUSCULAR HGB CONC 34.4 g/dL (33.0-36.5); MEAN PLATELET VOLUME 9.9 FL (7.4-10.4); NEUTROPHILS # (AUTO) 4.9 X10'3 (1.8-7.7); NEUTROPHILS % (AUTO) 69.4 % (42-75); PLATELET COUNT 175 X10'3 (140-440); RED BLOOD COUNT 3.19 X10'6 (4.70-6.10); RED CELL DISTRIBUTION WIDTH 13.8 % (11.5-14.5)
[2019-01-23 07:05] LABS: ALBUMIN 2.6 G/DL (3.4-5.0); ANION GAP 7 (8-16); BLOOD UREA NITROGEN 21 MG/DL (7-18); BUN/CREATININE RATIO 20.8 (5.4-32.0); CALCIUM 8.5 MG/DL (8.5-10.1); CHLORIDE 105 MMOL/L (99-107); CREATININE 1.01 MG/DL (0.60-1.10); GLUCOSE 118 MG/DL (70-104); INR 1.9 INR; MAGNESIUM 2.1 MG/DL (1.5-2.4); POTASSIUM 3.8 MMOL/L (3.5-5.1); SODIUM 140 MMOL/L (135-145); TOTAL CARBON DIOXIDE 27.6 MMOL/L (24-32); eGFR 71 ML/MIN
[2019-01-23] MEDS: magnesium Cl slow-release 64mg tablet PO SCH ×2 (08:00→19:48)
[2019-01-23] MEDS: K and/or MAG REPLACEMENT MC SCH (08:00)
[2019-01-23] MEDS: insulin Lispro (HumaLOG) vial - multi-dose SQ SCH ×3 (08:38→19:46)
[2019-01-23] MEDS: carVEDilol 3.125mg tablet PO SCH ×2 (08:39→19:48)
[2019-01-23] MEDS: atorvastatin 20mg tablet PO SCH (08:40)
[2019-01-23] MEDS: amiodarone 200mg tablet PO SCH (08:40)
[2019-01-23] MEDS: aspirin 81mg tablet.DR PO SCH (08:40)
[2019-01-23] MEDS: pantoprazole 40mg Tablet.DR PO SCH (08:40)
[2019-01-23] MEDS: docusate sod 100mg capsule PO SCH ×2 (08:41→19:48)
[2019-01-23] MEDS: potassium Cl 20 mEq SR tablet PO SCH ×2 (08:41→19:48)
[2019-01-23] MEDS: digoxin 250mcg (0.25mg) tablet PO SCH (08:41)
[2019-01-23] MEDS: acetaminophen 325mg tablet PO PRN (08:51)
--- NOTE | 2019-01-23 10:30 | NUR ---
Enzo Ritchie called and would like a Lifevest ordered for patient. LifeVest orders signed by Dr Ocampo and faxed to Dipika with [employer]. Dipika stated she would be by to fit the patient either later today or tomorrow.
[2019-01-23] MEDS ORDERED: digoxin 250mcg (0.25mg) tablet PO SCH (11:30)
[2019-01-23] MEDS: lisinopril 5mg tablet PO SCH (14:29)
--- NOTE | 2019-01-23 16:00 | NUR ---
Per Dr Alarcon, cancel LifeVest order. Notified Dipika with [facility].
--- NOTE | 2019-01-23 16:02 | NUR ---
Initial: patient s/p CABG x 2. Great appetite, eating 100% most meals and meeting nutrition needs for wound healing. Recommend 1. continue heart healthy, carb controlled diet 2. wt per rx Addendum: 01/23/19 at [address] Amended: Links added.
--- NOTE | 2019-01-23 17:40 | NUR ---
Per Dr Alarcon, give him his cardiac meds despite his blood pressure readings.
--- NOTE | 2019-01-23 17:48 | NUR ---
Patient in room MED 310. I have received report from GARRISON Medina and had the opportunity to ask questions and assume patient care.
--- NOTE | 2019-01-23 17:53 | NUR ---
patient is in bed with family present. Suction at bedside- per report patient uses this to clear secretions that he states are from allergies. Patient is in no distress. Resting comfortably. Blood pressure remains low- per verbal conversation with MD joyce at nursing station he states that while the blood pressure looks low, his underlying afib prevents a proper reading- to give all medications as ordered. Patient is not symptomatic at this time. Will continue to monitor for changes.
--- NOTE | 2019-01-23 18:05 | NUR ---
Patient in room MED 310. I have received report from Gabriella and had the opportunity to ask questions and assume patient care.
[2019-01-23] MEDS: insulin glargine (Lantus) pen - multi-dose SQ SCH (22:57)
[2019-01-24 03:00] VITALS: BP 100/57
[2019-01-24 06:00] VITALS: BP 105/58
[2019-01-24 06:36] LABS: BASOPHILS % (AUTO) 0.4 % (0-1); EOSINOPHILS # (AUTO) 0.3 X10'3 (0-0.9); EOSINOPHILS % (AUTO) 4.1 % (0-6); HEMOGLOBIN 10.5 g/dl (14.0-17.9); LYMPHOCYTES # (AUTO) 0.9 X10'3 (1.1-4.8); LYMPHOCYTES % (AUTO) 13.1 % (21-51); MEAN CORPUSCULAR HEMOGLOBIN 32.6 PG (27.0-31.0); MEAN CORPUSCULAR VOLUME 95.9 FL (78-98); MEAN PLATELET VOLUME 9.3 FL (7.4-10.4); MONOCYTES # (AUTO) 1.1 X10'3 (0-0.9); MONOCYTES % (AUTO) 14.6 % (2-12); NEUTROPHILS # (AUTO) 4.9 X10'3 (1.8-7.7); NEUTROPHILS % (AUTO) 67.8 % (42-75); PLATELET COUNT 189 X10'3 (140-440); RED BLOOD COUNT 3.23 X10'6 (4.70-6.10); RED CELL DISTRIBUTION WIDTH 13.9 % (11.5-14.5); WHITE BLOOD COUNT 7.2 X10'3 (4.5-11.0)
[2019-01-24 06:46] LABS: INR 2.3 INR
[2019-01-24 06:47] LABS: ALBUMIN 2.6 G/DL (3.4-5.0); ANION GAP 6 (8-16); BLOOD UREA NITROGEN 21 MG/DL (7-18); BUN/CREATININE RATIO 20.8 (5.4-32.0); CALCIUM 8.4 MG/DL (8.5-10.1); CHLORIDE 105 MMOL/L (99-107); CREATININE 1.01 MG/DL (0.60-1.10); GLUCOSE 117 MG/DL (70-104); MAGNESIUM 2.1 MG/DL (1.5-2.4); POTASSIUM 4.1 MMOL/L (3.5-5.1); SODIUM 137 MMOL/L (135-145); TOTAL CARBON DIOXIDE 26.1 MMOL/L (24-32); eGFR 71 ML/MIN
[2019-01-24] MEDS: docusate sod 100mg capsule PO SCH (07:51)
[2019-01-24] MEDS: aspirin 81mg tablet.DR PO SCH (07:51)
[2019-01-24] MEDS: atorvastatin 20mg tablet PO SCH (07:51)
[2019-01-24] MEDS: magnesium Cl slow-release 64mg tablet PO SCH (07:52)
[2019-01-24] MEDS: pantoprazole 40mg Tablet.DR PO SCH (07:52)
[2019-01-24] MEDS: potassium Cl 20 mEq SR tablet PO SCH (07:52)
[2019-01-24] MEDS: digoxin 250mcg (0.25mg) tablet PO SCH (07:54)
[2019-01-24] MEDS: carVEDilol 3.125mg tablet PO SCH (07:57)
[2019-01-24] MEDS: K and/or MAG REPLACEMENT MC SCH (08:00)
[2019-01-24] MEDS ORDERED: furosemide 20MG tablet PO SCH (08:00)
[2019-01-24] MEDS: lisinopril 5mg tablet PO SCH (08:06)
[2019-01-24] MEDS ORDERED: ASPI-1071 PO (08:53)
[2019-01-24] MEDS ORDERED: HYDR-3972 PO (08:53)
[2019-01-24] MEDS ORDERED: COL100C PO (08:53)
[2019-01-24] MEDS: insulin Lispro (HumaLOG) vial - multi-dose SQ SCH (09:14)
[2019-01-24 11:00] VITALS: BP 91/50
--- NOTE | 2019-01-24 12:09 | NUR ---
Patient seen at bedside and given written post cardiac surgery diet education handout with verbal review and emphasis on eating protein for wound heal. Pt verbalized understanding. Addendum: 01/24/19 at [address] Amended: Links added.
--- NOTE | 2019-01-24 13:30 | NUR ---
d/c education provided; all questions answered. pt removed from cardiac monitoring, IV removed; cannula intact. pt wheeled down to private vehicle with all belongings.
== END 2019-01-24 13:30 | disposition home health service (06) | DRG 235 ==
LOC: EDSTATUS 07:30 → PAS IN 08:26 → EDSTATUS 11:30 → ICU 2S 16:05 → MED 3N 01-22 12:56
PROVIDERS: ADMIT Thoracic Surgery (Cardiothoracic Vascular Surgery); ATTEND Thoracic Surgery (Cardiothoracic Vascular Surgery)
PROC: B3201ZZ Computerized Tomography (CT Scan) of Thoracic Aorta using Low Osmolar Contrast (ICD-10-PCS; 2019-01-17)
PROC: 06BP4ZZ Excision of Right Saphenous Vein, Percutaneous Endoscopic Approach (ICD-10-PCS; 2019-01-18)
PROC: 05HY33Z Insertion of Infusion Device into Upper Vein, Percutaneous Approach (ICD-10-PCS; 2019-01-18)
PROC: 02HP32Z Insertion of Monitoring Device into Pulmonary Trunk, Percutaneous Approach (ICD-10-PCS; 2019-01-18)
PROC: 4A133B3 Monitoring of Arterial Pressure, Pulmonary, Percutaneous Approach (ICD-10-PCS; 2019-01-18)
PROC: 4A1239Z Monitoring of Cardiac Output, Percutaneous Approach (ICD-10-PCS; 2019-01-18)
PROC: 0T7D7ZZ Dilation of Urethra, Via Natural or Artificial Opening (ICD-10-PCS; 2019-01-18)
PROC: B24BZZ4 Ultrasonography of Heart with Aorta, Transesophageal (ICD-10-PCS; 2019-01-18)
PROC: 5A1221Z Performance of Cardiac Output, Continuous (ICD-10-PCS; 2019-01-18)
PROC: 02L70CK Occlusion of Left Atrial Appendage with Extraluminal Device, Open Approach (ICD-10-PCS; 2019-01-18)
PROC: 02100Z9 Bypass Coronary Artery, One Artery from Left Internal Mammary, Open Approach (ICD-10-PCS; principal; 2019-01-18 12:51)
PROC: 021009W Bypass Coronary Artery, One Artery from Aorta with Autologous Venous Tissue, Open Approach (ICD-10-PCS; 2019-01-18 12:51)
DX: I25.119 Atherosclerotic heart disease of native coronary artery with unspecified angina pectoris (principal); I50.23 Acute on chronic systolic (congestive) heart failure; I42.8 Other cardiomyopathies; I48.2 Chronic atrial fibrillation; I35.8 Other nonrheumatic aortic valve disorders; E88.81 Metabolic syndrome and other insulin resistance; R94.39 Abnormal result of other cardiovascular function study; N35.919 Unspecified urethral stricture, male, unspecified site; N40.0 Benign prostatic hyperplasia without lower urinary tract symptoms; Z79.899 Other long term (current) drug therapy; Z79.01 Long term (current) use of anticoagulants; Z87.891 Personal history of nicotine dependence; Z83.3 Family history of diabetes mellitus
CPT/HCPCS: 0232T; 93312; 93325; 36415; 36600; 71045; 71046; 71275; 80048; 80053; 80162; 81001; 82330; 82435; 82803; 82947; 82948; 83036; 83735; 84100; 84132; 84295; 85018; 85025; 85347; 85384; 85610; 85730; 86885; 86900; 86901; 86920; 87070; 87077; 87088; 87186; 93005; 93308; 93880; 93970; 94002; 94003; 94010; 94668; 94760; 97110; 97116; 97162; 97530; A4402; A6255; A6258; A6402; A6449; A7000; A7048; C1751; C1758; C9113; G0378; J0131; J0690; J1265; J1644; J1815; J1940; J2001; J2060; J2150; J2250; J2370; J2440; J2704; J2720; J2795; J3370; J3480; J3490; J7030; J7060; J7120; P9045; P9047; Q9967